=== PATIENT | female | born 2000 | race Two or more races ===

== ENCOUNTER 2025-01-24 21:04 | Emergency (ER) | payer MEDICAID, SELFPAY ==
[2025-01-24 21:05] VITALS: BMI 30.2
[2025-01-24 21:11] VITALS: BP 142/92; PULSE 75; RESP 18; TEMP 36.6; O2SAT 96
--- NOTE | 2025-01-24 21:23 | XR_ITS ---
EXAMINATION: PA chest single view TECHNIQUE: Upright PA chest single view Date and time: January 24, 2025, 2130 hours INDICATION: Coughing beginning 3 weeks ago. FINDINGS: Normal heart size Lungs are clear. Osseous rectors are intact IMPRESSION: No active disease
--- NOTE | 2025-01-24 21:23 | PD.EDURI ---
Upper Respiratory Inf. RME/HPI General Chief Complaint: Flu Like Symptoms Stated Complaint: COUGHING,SNEEZING,DIFF BREATHING Time Seen by Provider: 01/24/25 21:09 Source: patient, RN notes reviewed and old records reviewed Arrival date/time: 01/24/25 21:04 Mode of arrival: ambulatory Limitations: no limitations RME / HPI RME / HPI Narrative: 24yof presents to ED for 1 month history of persistent dry cough. Patient reports shortness of breath over the past 3 days. She was evaluated by PCP last week and prescribed montelukast and an albuterol inhaler, reports minimal symptom relief. No fever, chest pain, nausea/vomiting, dizziness or syncope reported. 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 Previous Rx's ?Medication ?Instructions ?Recorded acetaminophen 500 mg capsule 500 mg PO Q6H PRN fever or pain 06/05/17 #30 caps ibuprofen 600 mg tablet 600 mg PO Q6HR PRN fever or pain 06/05/17 #30 tabs albuterol sulfate 90 mcg/actuation 2 puff inhalation Q4H PRN 01/24/25 aerosol inhaler (Ventolin HFA) shortness of breath or wheezing #18 grams benzonatate 200 mg capsule 200 mg PO TID PRN cough #30 caps 01/24/25 inhalational spacing device #1 ea 01/24/25 prednisone 50 mg tablet 50 mg PO QDAY 5 days #5 tabs 01/24/25 Allergies Allergy/AdvReac Type Severity Reaction Status Date / Time No Known Allergies Allergy Verified 01/24/25 21:05 Review of Systems Review of Systems Systems Reviewed: All systems reviewed, normal except as documented Constitutional Constitutional: Denies chills, Denies fever(s) and Denies headache(s) ENT Ears, Nose, Mouth, and Throat: Denies headache(s) and Denies vertigo Comments: Reports runny nose, sneezing Cardiovascular Cardiovascular: Denies chest pain and Reports dyspnea Respiratory Respiratory: Reports cough and Reports dyspnea Gastrointestinal Gastrointestinal: Denies nausea and Denies vomiting Musculoskeletal Musculoskeletal: Denies myalgias Neurologic Neurologic: Denies headache(s) and Denies vertigo Past Medical History Past Medical History GASTROINTESTINAL: Positive Obesity Surgical History OTHER SURGICAL HX: Left arm ORIF Social History SMOKING STATUS: Never smoker SUBSTANCE USE: does not use ALCOHOL: Current (social) ED Exam General Limitations: Present no limitations General appearance: Present alert and in no apparent distress Head Head exam: Present atraumatic and normocephalic Eye Eye exam: Present normal appearance, PERRL and EOMI ENT ENT exam: Present normal exam, normal oropharynx and mucous membranes moist Neck Neck exam: Present normal inspection and full ROM Chest Chest inspection: Present normal inspection and symmetric chest wall rise Respiratory Respiratory exam: Present normal lung sounds bilaterally and other (No wheezing, rales or rhonchi); Absent respiratory distress Cardiovascular Cardiovascular exam: Present regular rate and normal rhythm Extremities Exam Extremities exam: Present normal inspection and full ROM Neurological Exam Neurological exam: Present alert and oriented X3 Psychiatric Psychiatric exam: Present normal affect and normal mood Skin Skin exam: Present warm, dry, intact and normal color Course Quality Measures none Orders Category Date Time Status CXR [XR chest 1V] Stat Exams 01/24/25 21:23 Completed Albuterol/Ipratr Rt Gisella [Duoneb Rt Gisella] Med 01/24/25 21:23 Discontinued 3 ml INH X1 ONE predniSONE Med 01/24/25 21:23 Discontinued 60 mg PO X1 ONE Vital Signs Vital signs: Vital Signs Temperature 97.8 F 01/24/25 21:11 Pulse Rate 75 01/24/25 21:11 Respiratory Rate 18 01/24/25 21:11 Blood Pressure 142/92 H 01/24/25 21:11 Pulse Oximetry (%) 96 01/24/25 21:11 Oxygen Delivery Method Room Air 01/24/25 21:11 Upper Respiratory Infection MDM Narrative MDM Narrative:: 24yof presents to ED for 1 month history of persistent dry cough. Patient reports shortness of breath over the past 3 days. She was evaluated by PCP last week and prescribed montelukast and an albuterol inhaler, reports minimal symptom relief. No fever, chest pain, nausea/vomiting, dizziness or syncope reported. 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 Symptoms improved after neb treatment. CXR negative. Patient is well-appearing, vitals are stable. No evidence of respiratory distress or hypoxia. Will treat for bronchitis and DC home with 5-day course of prednisone, albuterol inh, tessalon perles. Stable for discharge, RTED precautions given. Patient data External records reviewed:: [facility] previous records (06/05/17 ED visit for right finger contusion) Clinical information provided by:: patient Social determinants that could affect healthcare access:: none Patient has the following chronic illnesses:: Obesity How is presenting disease/condition affected by chronic disease/condition?: uneffected by Evaluation data The following diagnostics were reviewed and interpreted by me:: radiology exam(s) Lab and/or radiology exams considered but not ordered:: Covid/flu: results would not affect treatment plan Interpretation Summary: CXR: no pneumonia per my read Medications / Prescriptions Medications or Prescriptions considered but not ordered:: No antibiotics recommended at this time Medication administrations:: Medication Administration History Discontinued Medications Albuterol/Ipratropium (Albuterol/Ipratropium (Duoneb) Rt Gisella 3 Ml Nebu) 3 ml INH X1 ONE Stop: 01/24/25 21:24 Last Admin: 01/24/25 23:14 Dose: 3 ml Documented By: MARLYS Prednisone (Prednisone 20 Mg Tablet) 60 mg PO X1 ONE Stop: 01/24/25 21:24 Last Admin: 01/24/25 21:55 Dose: 60 mg Documented By: CVL Above medications administered in ED Consultations Consultation(s) initiated? (list below): No Diagnosis Upper Respiratory Differential Diagnosis: other (Bronchitis, pneumonia, bronchospasm, URI, viral illness, COVID, flu) Most likely diagnosis given after review of the tests above:: Bronchitis Admission Indicated Admission indicated?: not indicated Admission Request Was there a request for admission?: No Disposition Plan Disposition Plan: Discharge Discharge Attestation Discharge Attestation: The patient and all family members were given an opportunity to ask questions and understood the discharge instructions. Discharge instructions specifically effects, indications for sooner follow up or return to the emergency department, and the expected course of current diagnosis. Patient condition: Stable Discharge Plan Plan Patient Disposition: HOME (Self Care) Patient condition on transfer: Stable Prescriptions/Referrals Prescriptions/Med Rec: New prednisone 50 mg tablet 50 mg PO QDAY 5 Days Qty: 5 0RF benzonatate 200 mg capsule 200 mg PO TID PRN (Reason: cough) Qty: 30 0RF albuterol sulfate [Ventolin HFA] 90 mcg/actuation HFA aerosol inhaler 2 puff inhalation Q4H PRN (Reason: shortness of breath or wheezing) Qty: 18 0RF (DME) inhalational spacing device Spacer See Rx Instructions .Route Qty: 1 0RF Rx Instructions: As directed No Action ibuprofen 600 mg tablet 600 mg PO Q6HR PRN (Reason: fever or pain) Qty: 30 0RF acetaminophen 500 mg capsule 500 mg PO Q6H PRN (Reason: fever or pain) Qty: 30 0RF Problem List Clinical Impression: Bronchitis Patient/Caregiver Discharge Instructions Education Materials: ED Bronchitis, No Antibiotic (Adult) Print Language: Arabic Stand Alone Forms: [facility] Award Info., Patient Portal Info Letter PA/MANAGER TALENT MANAGEMENT Supervising Physician PA/MANAGER TALENT MANAGEMENT Supervising Physician: Saqib
[2025-01-24] MEDS: ALBUTEROL/IPRATROPIUM (Duoneb) RT SOL 3 ML NEBU INH (23:14)
[2025-01-24 23:18] VITALS: PULSE 70; RESP 16; O2SAT 99
== END 2025-01-25 00:16 | disposition home or self-care (01) ==
PROVIDERS: Emergency Provider Emergency Medicine
DX: J40 Bronchitis, not specified as acute or chronic (principal)
CPT/HCPCS: 71045; 94640; 99283; A9270; J7512